=== PATIENT | female | born 1965 | race Caucasian/White ===

== ENCOUNTER 2022-04-03 11:47 | Outpatient (CLI) | payer OTHER, SELFPAY ==
--- NOTE | ~2022-04-03 | MM_ITS ---
EXAMINATION: MM screening kevan BI w earnest HISTORY: Screening mammogram TECHNIQUE: Craniocaudal and mediolateral oblique 3-D tomosynthesis images were obtained and synthetic 2-D images were generated. CAD analysis was submitted and interpreted. COMPARISON: 04/29/2018 bilateral screening mammogram BREAST PARENCHYMAL COMPOSITION: The breasts are almost entirely fatty. FINDINGS: Stable small circumscribed benign term memory lymph node in the posterior upper outer left breast, unchanged since 04/29/2018. There is no evidence of suspicious mass, calcification, or archite ctural distortion to suggest malignancy in either breast. There has been no suspicious interval meng e. IMPRESSION: 1. No mammographic evidence of malignancy. 2. Recommend routine screening mammography in one year. BI-RADS Category 1: Negative Reviewed, dictated and finalized at location A.
== END 2022-04-03 11:48 | disposition home or self-care (01) ==
LOC: CHSIMG 11:51
PROVIDERS: PCP Internal Medicine; Visit Provider Internal Medicine
DX: Z12.31 Encounter for screening mammogram for malignant neoplasm of breast (principal)
CPT/HCPCS: 77063; 77067

== ENCOUNTER 2022-04-10 07:24 | Outpatient (CLI) | payer OTHER, BC, SELFPAY ==
--- NOTE | ~2022-04-10 | US_ITS ---
US abdomen complete EXAMINATION: US Abdomen Complete INDICATION: Cirrhosis with ascites PROCEDURE: Realtime High Resolution abdomen ultrasound. COMPARISON: No prior studies for comparison FINDINGS: Gallbladder within normal limits. No gallstones, pericholecystic fluid, gallbladder wall t hickening or biliary dilatation. Common bile duct measures 4.7 mm. Liver echotexture liver echotexture is increased, consistent with fatty infiltration. Pancreas withi n normal limits. Pancreatic tail is obscured by bowel gas. Spleen is unremarkeable. Renal echotextu re is within normal limits bilaterally without hydronephrosis, contour deforming mass or renal stone. Right kidney measures 11.2 cm. Left kidney measures 13.4 cm. Visualized aspects of the aorta and IVC are within normal limits. Portal vein is patent. No sonograph ic Acosta's sign indicated by the technologist. IMPRESSION: 1: Hepatic steatosis. Reviewed, dictated and finalized at location B. IMPRESSION: 1: Hepatic steatosis.
== END 2022-04-10 07:25 | disposition home or self-care (01) ==
LOC: CHSIMG 07:26
PROVIDERS: PCP Internal Medicine; Visit Provider Internal Medicine
DX: Z00.00 Encounter for general adult medical examination without abnormal findings (principal); I10 Essential (primary) hypertension; R73.03 Prediabetes; R60.9 Edema, unspecified; K75.81 Nonalcoholic steatohepatitis (NASH)
CPT/HCPCS: 76700

== ENCOUNTER 2022-08-11 16:36 | Emergency (ER) | payer OTHER, BC, SELFPAY ==
--- NOTE | ~2022-08-11 | XR_ITS ---
EXAMINATION: XR abdomen/kub 1V INDICATION: Left flank pain TECHNIQUE: Supine views of the abdomen were obtained on 2 radiographs. COMPARISON: None FINDINGS: There are phleboliths of the pelvis. No definite urolithiasis is identified. The bowel gas pattern is normal. There is mild osteoarthritis of the hips. Osteitis pubis is noted. IMPRESSION: 1. No definite urolithiasis identified. Reviewed, dictated and finalized at location A.
[2022-08-11 16:44] VITALS: BP 150/89; PULSE 93; RESP 16; TEMP 37.6; O2SAT 100
--- NOTE | 2022-08-11 16:57 | ED.BACK ---
HPI - Back Pain/Injury General Chief Complaint: Back Pain/Injury Stated Complaint: lower back pain Time Seen by Provider: 08/11/22 16:47 Source: patient and RN notes reviewed Mode of arrival: ambulatory Limitations: no limitations History of Present Illness HPI Narrative: 57-year-old female presents concern for right flank pain since yesterday. She reports it is a sharp stabbing pain. She reports she does not find a place of comfort. She denies injury or trauma. She denies dysuria, frequency, urgency, hematuria, difficulty urinating. She reports the flank pain did shoot around the side towards the abdomen at one point, but denies other abdominal pain. She denies loss of bowel or bladder function, fever. She denies weakness in the extremity. MD elicited complaint: back pain Related Data Home Medications Medication Instructions Recorded Confirmed semaglutide 1 mg/dose (4 mg/3 mL) mg subcut 08/11/22 subcutaneous pen injector (Ozempic) torsemide 10 mg tablet mg 08/11/22 valsartan 160 tablet 08/11/22 mg-hydrochlorothiazide 12.5 mg tablet Allergies Allergy/AdvReac Type Severity Reaction Status Date / Time NKA Allergy Unknown Uncoded 04/25/03 15:06 NO KNOWN DRUG ALLERGIES Allergy Y Uncoded 04/25/03 15:47 (Class Allergy) Review of Systems Review of Systems: CONSTITUTIONAL: Denies malaise, chills, sweats, or fever. CARDIOVASCULAR: Denies chest pain, palpitations, or edema. RESPIRATORY: Denies cough or dyspnea. GASTROINTESTINAL: Denies abdominal pain, nausea, vomiting, diarrhea, loss of bowel function GENITOURINARY: Denies dysuria, hematuria, frequency, loss of bladder function. SKIN: Denies rash or itching. MUSCULOSKELETAL: Reports left flank pain NEUROLOGIC: Denies numbness, weakness, or headache. All systems reviewed & are unremarkable except as noted in HPI and below [facility] Family History Family History (Updated 05/30/16 @ 23:19 by DOCTOR UNKNOWN) Sibling Depression Mother Hypertension Family history of elevated blood lipids Father Family history of malignant neoplasm of bone Grandparent Family history of malignant neoplasm of breast Social History Social History Smoking status: Never smoker Alcohol intake: current Comments At time of signature, agree with nursing past medical, surgical, social and family history. There is no relevant family history pertinent to the presenting complaint Exam Narrative: GENERAL: Well-appearing, well-nourished, and in no acute distress. HEAD: Normocephalic, atraumatic. EYES: PERRLA and EOMI. NECK: Supple. No lymphadenopathy. CHEST: Clear to auscultation. No respiratory distress. HEART: Regular rate and rhythm. Distal pulses palpable and equal, cap refill <3 seconds ABDOMEN: Soft, nontender, nondistended, normal active bowel sounds, no palpable or pulsatile masses. No CVA tenderness MUSCULOSKELETAL: Normal range of motion and strength in all extremities; 5/5 strength with right hip flexion and extension, 4/5 strength with left hip flexion and extension; 5/5 bilateral dorsiflexion and extension, knee flexion and extension, plantar flexion and extension. Normal sensation in dermatomal distributions with sensitivity to light touch and pain. No midline back tenderness to palpation. No paraspinal tenderness. Transfers from lying to sitting to standing. Left CVA tenderness SKIN: Warm, dry, no rash. No ecchymosis, erythema, open wounds to back. NEURO: No focal deficits. Alert and oriented x3. Reflexes intact. Normal gait. PSYCH: Normal mood and affect Course Course Emergency Course: Discussed x-ray findings with the patient. Discussed limited diagnostic capability at [facility], and offered transfer to emergency department for further evaluation. Patient is agreeable to treat for potential musculoskeletal related back pain and will call to make an appointment with Dr. Quintanilla or go to the emergency room if her flank pain persist despite the [facility]
== END 2022-08-11 17:28 | disposition home or self-care (01) ==
PROVIDERS: Emergency Provider Nurse Practitioner; PCP Internal Medicine
DX: R10.9 Unspecified abdominal pain (principal)
CPT/HCPCS: 74018; 81003; 99213; G0463

== ENCOUNTER 2024-07-25 00:11 | Day surgery (SDC) | payer OTHER, SELFPAY ==
--- NOTE | 2024-07-15 15:50 | PC.NURSE ---
Pt left multiple messages to call for her pre-op interview and instructions. Pt called and left message on 07/14/2024 that she would be off on Thursday07/15/2024 and could be reached all day and any day after 3pm. Call attempted at 0814 voicemail received with message left, attempted again at 1550 again voicemail received and message left to call Thursday.
[2024-07-18 11:53] VITALS: BMI 41.4
[2024-07-25 06:17] VITALS: BP 132/84; PULSE 80; RESP 18; TEMP 36.1; O2SAT 100; BMI 41.5
[2024-07-25] MEDS: LACTATED RINGERS 1,000 ML 150 ML IV CONT (06:34)
[2024-07-25 06:36] LABS: Glucose Point of Care 104 mg/dl (65-105)
--- NOTE | 2024-07-25 07:23 | WPDANESEPPF ---
Anes - Initial Pre Proc Eval Procedure: Operation Date: 07/25/24 07:30 Proposed Procedures p Screening Colonoscopy - Yaw Galdamez DO Date/Time: 07/25/24 07:23 Surgeon: Yaw Galdamez DO Pre Op Diagnosis: Screening for malignant neoplasm of colon Patient Data Age: 58 Gender: F Height: 1.75 m Weight: 127.6 kg Allergies Allergy/AdvReac Type Severity Reaction Status Date / Time No Known Allergies Allergy Verified 07/25/24 06:15 Home Medications Medication Instructions Recorded Confirmed Type ibuprofen 800 mg tablet 800 mg PO Q6H PRN pain #30 tabs 08/11/22 07/25/24 Rx semaglutide 1 mg/dose (4 mg/3 mL) 1 mg subcut WEEKLY 08/11/22 07/25/24 History subcutaneous pen injector (Ozempic) valsartan 160 1 tablet PO DAILY 08/11/22 07/25/24 History mg-hydrochlorothiazide 12.5 mg tablet Adults Multivitamin 1 tab-cap PO DAILY 07/18/24 07/25/24 History ashwagandha root extract 1 gummy PO HS 07/18/24 07/18/24 History melatonin 5 mg tablet 5 mg PO HS PRN Insomnia 07/18/24 07/18/24 History vitamin B complex 1 cap PO DAILY 07/18/24 07/25/24 History vitamin E 400 unit tablet 400 unit PO DAILY 07/18/24 07/25/24 History Laboratory Tests 07/25/24 06:30 POC Capillary Glucose 104 mg/dl (65-105) Patient hx anesthesia problems: none Family hx anesthesia problems: none Results Review: All pre-operative results and documents have been reviewed as part of the pre-operative evaluation. [facility] Family History Family History (Updated 05/30/16 @ 23:19 by DOCTOR UNKNOWN) Sibling Depression Mother Hypertension Family history of elevated blood lipids Father Family history of malignant neoplasm of bone Grandparent Family history of malignant neoplasm of breast Social History Social History Smoking status: Former smoker Alcohol intake: current Drinks per week: 1 Alcohol use details: DRINK Substance use: never Substance use type: does not use Living arrangements: with family Spiritual care concerns: No Anes - Eval Final PreProcedure Day of Procedure 07/25/24 07:23 Patient weight: morbidly obese Heart: regular rate and rhythm Lungs: clear to auscultation Airway: Mallampati scale class II Neurological: alert and oriented Last oral intake: >/= 8 hours ASA classification: III Emergent: no Anesthetic plan: proceed Anesthesia type and monitoring: general GIVS and standard monitoring Results Review: All pre-operative results and documents have been reviewed as part of the pre-operative evaluation. Informed Consent: The patient's anesthetic plan and its attendant risks and benefits were discussed with the patient/family/POA. Questions were solicited and answers provided to the satisfaction of the patient/family/POA.
--- NOTE | 2024-07-25 07:28 | PM.IMHP ---
H&P: HPI History of Present Illness Date/Time: 07/25/24 07:28 Chief Complaint: Screening for colorectal cancer Narrative: this is a 58-year-old woman who presents for colonoscopy. Her last colonoscopy was about 10 years ago. She denies any family history of colon cancer. She denies any hematochezia or melena. Review of Systems Review of Systems: All systems reviewed & are unremarkable except as noted in HPI and below Constitutional: Constitutional: Denies chills, Denies fever(s), Denies headache(s) and Denies weight loss Eyes: Eyes: Denies change in vision ENT: Denies dizziness, Denies headache(s), Denies neck mass and Denies throat swelling Cardiovascular: Cardiovascular: Denies chest pain, Denies lightheadedness and Denies dyspnea Respiratory: Respiratory: Denies cough, Denies dyspnea and Denies wheezing Gastrointestinal: Gastrointestinal: Denies abdominal pain, Denies change in bowel habits, Denies nausea and Denies vomiting Genitourinary: Genitourinary: Denies hematuria and Denies dysuria Musculoskeletal: Musculoskeletal: Reports as per HPI Integumentary/Breasts: Skin/Breast: Reports as per HPI Neurologic: Denies dizziness and Denies headache(s) Allergic/Immunologic: Allergic/Immunologic: Denies throat swelling and Denies wheezing [facility] Family History Family History (Updated 05/30/16 @ 23:19 by DOCTOR UNKNOWN) Sibling Depression Mother Hypertension Family history of elevated blood lipids Father Family history of malignant neoplasm of bone Grandparent Family history of malignant neoplasm of breast Social History Social History Smoking status: Former smoker Alcohol intake: current Drinks per week: 1 Alcohol use details: DRINK Substance use: never Substance use type: does not use Living arrangements: with family Spiritual care concerns: No Meds Home Medications and Allergies Home Medications Medication Instructions Recorded Confirmed Type ibuprofen 800 mg tablet 800 mg PO Q6H PRN pain #30 tabs 08/11/22 07/25/24 Rx semaglutide 1 mg/dose (4 mg/3 mL) 1 mg subcut WEEKLY 08/11/22 07/25/24 History subcutaneous pen injector (Ozempic) valsartan 160 1 tablet PO DAILY 08/11/22 07/25/24 History mg-hydrochlorothiazide 12.5 mg tablet Adults Multivitamin 1 tab-cap PO DAILY 07/18/24 07/25/24 History ashwagandha root extract 1 gummy PO HS 07/18/24 07/18/24 History melatonin 5 mg tablet 5 mg PO HS PRN Insomnia 07/18/24 07/18/24 History vitamin B complex 1 cap PO DAILY 07/18/24 07/25/24 History vitamin E 400 unit tablet 400 unit PO DAILY 07/18/24 07/25/24 History Allergies Allergy/AdvReac Type Severity Reaction Status Date / Time No Known Allergies Allergy Verified 07/25/24 06:15 Exam Const: General: no acute distress and alert Orientation/consciousness: patient oriented x3 HENMT: Head: normocephalic and atraumatic Ears: hearing grossly normal bilaterally Face/Nose/Sinus: Normal nares present Mouth: Yes Normal oral and palatal mucosa present Eyes: Periorbital: periorbital findings normal Sclera: sclerae normal EOM: EOMs intact bilaterally Neck: Neck: normal visual inspection, no lymphadenopathy and trachea midline Chest: Chest palpation & inspection: normal inspection of the chest Resp: Effort & Inspection: normal respiratory effort Auscultation: clear to auscultation bilaterally Cardio: Jugular venous distension: no JVD Rate: regular rate Rhythm: regular rhythm Heart sounds: S1 normal heart sound present and S2 normal heart sound present Peripheral pulses: Peripheral pulses 2+ throughout GI: Inspection: normal to inspection GI Palp: Yes Soft to palpation, No Tenderness to palpation present (GI), No Guarding due to palpation present (GI) and No Rebound tenderness present Percussion: Yes normal to percussion Auscultation: normal bowel sounds : General: Yes no CVA tenderness Back/Spine/Pelvis: Back: no CVA tenderness Neuro: General
[2024-07-25 07:49] VITALS: BP 98/57; PULSE 76; RESP 19; O2SAT 100
[2024-07-25 08:00] VITALS: BP 95/62; PULSE 70; RESP 26; O2SAT 100
[2024-07-25 08:09] VITALS: BP 114/73; PULSE 65; RESP 18; O2SAT 100
== END 2024-07-25 08:17 | disposition home or self-care (01) ==
PROVIDERS: PCP Internal Medicine; Visit Provider Surgery
PROC: 0DJD8ZZ Inspection of Lower Intestinal Tract, Via Natural or Artificial Opening Endoscopic (ICD-10-PCS; CPT 45378; principal; 2024-07-25 07:30)
DX: Z12.11 Encounter for screening for malignant neoplasm of colon (principal); K57.30 Diverticulosis of large intestine without perforation or abscess without bleeding; E66.01 Morbid (severe) obesity due to excess calories; Z68.41 Body mass index [BMI] 40.0-44.9, adult; Z79.1 Long term (current) use of non-steroidal anti-inflammatories (NSAID); Z79.85 Long-term (current) use of injectable non-insulin antidiabetic drugs; Z87.891 Personal history of nicotine dependence; Z80.3 Family history of malignant neoplasm of breast; Z80.8 Family history of malignant neoplasm of other organs or systems
CPT/HCPCS: 45378; 82948; J2704; J7120